=== PATIENT | female | born 1955 | race Caucasian/White ===

== ENCOUNTER 2023-03-16 09:15 | Day surgery (SDC) | payer BC, MEDICARE ==
[2023-03-16] MEDS ORDERED: fentaNYL 100 MCG/2 ML SDV IV ONE (09:16)
[2023-03-16] MEDS ORDERED: Midazolam 1 MG/ML 2 ML SDV IV ONE (09:16)
[2023-03-16] MEDS ORDERED: Lactated Ringers 1,000 ML IV PRN (09:30)
[2023-03-16] MEDS ORDERED: Sodium Chloride 0.9% 10 ML Syringe FLUSH PRN (09:30)
[2023-03-16 11:26] VITALS: BP 138/80; PULSE 70
[2023-03-16] MEDS ORDERED: acetaZOLAMIDE 500 MG Cap.ER PO ONE (11:30)
== END 2023-03-16 11:45 | disposition home or self-care (01) ==
LOC: FB.SDS 09:15
PROVIDERS: ATTEND Ophthalmology
DX: H25.9 Unspecified age-related cataract (principal); Z79.899 Other long term (current) drug therapy; Z87.891 Personal history of nicotine dependence
CPT/HCPCS: 00142; 66984; A9270; J2250; J3010; J3490; V2632

== ENCOUNTER 2023-03-30 09:02 | Day surgery (SDC) | payer MEDICARE ==
[~2023-03-30 09:02] MED LIST: Lactated Ringers 1,000 ML IV PRN
[2023-03-30] MEDS ORDERED: fentaNYL 100 MCG/2 ML SDV IV ONE (09:03)
[2023-03-30] MEDS ORDERED: Midazolam 1 MG/ML 2 ML SDV IV ONE (09:03)
[2023-03-30] MEDS ORDERED: Sodium Chloride 0.9% 10 ML Syringe IV ONE (09:03)
[2023-03-30] MEDS: Sodium Chloride 0.9% 10 ML Syringe FLUSH PRN (09:45)
[2023-03-30] MEDS: acetaZOLAMIDE 500 MG Cap.ER PO ONE (10:59)
[2023-03-30 11:44] VITALS: BP 123/59; PULSE 69
== END 2023-03-30 11:20 | disposition home or self-care (01) ==
LOC: FB.SDS 09:02
PROVIDERS: ATTEND Ophthalmology
DX: H25.9 Unspecified age-related cataract (principal); Z79.899 Other long term (current) drug therapy; Z87.891 Personal history of nicotine dependence
CPT/HCPCS: 00142; A9270-GY; J2250; J3010; J3490